=== PATIENT | male | born 1980 | race Caucasian/White ===

== ENCOUNTER 2019-09-12 13:35 | Emergency (ER) | payer SELFPAY ==
[~2019-09-12] VITALS: Ht 185.4 cm; Wt 86.2 kg
[2019-09-12 13:52] VITALS: BP 152/76
[2019-09-12] MEDS ORDERED: LIDOCAINE 1% Multi-Dose 20 ML VIAL. INJ ONE (14:00)
[2019-09-12] MEDS ORDERED: DIPHTH,PERTUSS(ACELL),TET TOX 0.5 ML DISP.SYRIN. VAX IM ONE ×2 (14:01→14:15)
--- NOTE | 2019-09-12 14:01 | PHYS DOC ---
Adult General Chief Complaint Chief Complaint: LACERATION/AVULSION HPI HPI Patient is a 39 year old Male who presents with was cutting a potato today when the knife cut his left distal posterior index. This happened right before arrival to the emergency room. Patient rates his pain a 4 out of 10. Review of Systems Review of Systems Integument: Left index finger laceration. Denies rash or skin lesions [] All other systems were reviewed and found to be within normal limits, except as documented in this note. Current Medications Current Medications Current Medications Medications (Trade) Dose Ordered Sig/Dorothy Start Time Stop Time Status Last Admin Dose Admin Diphtheria/ Tetanus/Acell Pertussis (Boostrix) 0.5 ml ONCE ONCE 09/12/19 14:15 09/12/19 14:16 DC 09/12/19 14:13 0.5 ML Lidocaine HCl (Lidocaine 1% 20ml Vial) 20 ml 1X ONCE 09/12/19 14:00 09/12/19 14:01 DC 09/12/19 14:11 20 ML Allergies Allergies Allergies Coded Allergies Type Severity Reaction Last Updated Verified No Known Drug Allergies 09/12/19 No Physical Exam Physical Exam Constitutional: Well developed, well nourished, no acute distress, non-toxic appearance. [] Skin: Left index finger laceration. Warm, dry, no erythema, no rash. [] Extremities: No tenderness, no cyanosis, no clubbing, ROM intact, no edema. [] Neurologic: Alert and oriented X 3, normal motor function, normal sensory func tion, no focal deficits noted. [] Psychologic: Affect normal, judgement normal, mood normal. [] Current Patient Data Vital Signs Vital Signs Date Time Temp Pulse Resp B/P (MAP) Pulse Ox O2 Delivery O2 Flow Rate FiO2 09/12/19 13:52 97.8 71 18 152/76 (101) 95 Room Air 97.8 EKG EKG [] Radiology/Procedures Radiology/Procedures [] Course & Med Decision Making Course & Med Decision Making Patient cannot remember the last time he had a tetanus shot was. The laceration itself is a "V" shape. Edges are approximated and together. Bleeding controlled. Alert and oriented. Skin pink warm and dry. Cap refill < 3 seconds. Radial pulse present. Denies any numbness or tingling. Laceration Repair by me: Anesthesia: 1% lidocaine locally Location: Left posterior distal Index finger Tendon/Joint/Nerves: No injury Foreign body: None detected after copious irrigation with saline and chlorhexidine and exploration Technique: 4 Simple Interrupted Sutures Complexity: No subcutaneous sutures/mucosal repair/edge excision Post Closure Length: 1 x1 cm ( "V" shaped) Patient's bleeding was easily controlled in the department and there is no indication of anemia. No evidence of compartment syndrome, neurologic injury, vascular injury, open joint, tendon laceration, or foreign body. Patient is appropriate for outpatient follow up. 48 hour wound check. Scar minimization instructions given. Dragon Disclaimer Dragon Disclaimer This electronic medical record was generated, in whole or in part, using a voice recognition dictation system. Departure Departure Impression: Primary Impression: Laceration Disposition: HOME, SELF-CARE Condition: STABLE Referrals: NO PCP (PCP) Patient Instructions: Fingertip Laceration Additional Instructions: Keep area clean and covered. Sutures need to removed i 10 days. Scripts Ibuprofen (IBUPROFEN) 600 Mg Tablet 600 MG PO PRN Q6HRS PRN for INFLAMMATION, #20 TAB Prov: SOFYA HANSEN APRN 09/12/19 SOFYA HANSEN APRN Sep 12, 2019 14:01
[2019-09-12] MEDS ORDERED: IBUP-1007 PO (14:39)
== END 2019-09-12 14:47 | disposition home or self-care (01) ==
LOC: ER 13:35
DX: S61.211A Laceration without foreign body of left index finger without damage to nail, initial encounter (principal); W26.0XXA Contact with knife, initial encounter; Y93.G3 Activity, cooking and baking; Y92.89 Other specified places as the place of occurrence of the external cause; Y99.8 Other external cause status
CPT/HCPCS: 12001; 90471; 90715; 99283